=== PATIENT | male | born 1960 | race Caucasian/White ===

== ENCOUNTER 2019-04-07 09:05 | Emergency (ER) | payer OTHER ==
--- NOTE | 2019-04-07 09:55 | RAD ---
3 views left hand. HISTORY: Trauma with left hand pain. AP, lateral and oblique views left hand obtained 3 views left hand demonstrates no evidence of left hand fractures, subluxations or bony lesions. IMPRESSION: normal 3 views left hand.
== END 2019-04-07 10:30 | disposition home or self-care (01) ==
LOC: MADERS 09:05
DX: S60.222A Contusion of left hand, initial encounter (principal); I10 Essential (primary) hypertension; I25.2 Old myocardial infarction; F17.210 Nicotine dependence, cigarettes, uncomplicated; Z79.899 Other long term (current) drug therapy; Z79.82 Long term (current) use of aspirin; W20.8XXA Other cause of strike by thrown, projected or falling object, initial encounter